=== PATIENT | male | born 1980 | race Two or more races ===

== ENCOUNTER 2016-10-06 00:40 | Emergency (ER) | payer OTHER ==
[~2016-10-06] VITALS: Ht 175.3 cm; Wt 111.1 kg
[2016-10-06 02:00] VITALS: BP 128/80
[2016-10-06] MEDS ORDERED: fentaNYL 100 mcg/2 mL IV ONE (02:00)
[2016-10-06 02:29] LABS: BASOPHILS % (AUTO) 1.4 % (0.0-2.0); EOSINOPHILS % (AUTO) 3.6 % (0.0-3.0); LYMPHOCYTES % (AUTO) 28.4 % (20.0-45.0); MEAN CORPUSCULAR HEMOGLOBIN 28.6 PG (27.0-31.0); MEAN CORPUSCULAR VOLUME 84 FL (80-99); MEAN PLATELET VOLUME 8.6 FL (6.5-10.1); MONOCYTES % (AUTO) 7.3 % (1.0-10.0); NEUTROPHILS % (AUTO) 59.3 % (45.0-75.0); PLATELET COUNT 171 K/UL (150-450); RED BLOOD COUNT 5.29 M/UL (4.70-6.10); RED CELL DISTRIBUTION WIDTH 11.8 % (11.6-14.8); WHITE BLOOD COUNT 4.6 K/UL (4.8-10.8)
[2016-10-06 02:42] LABS: ALANINE AMINOTRANSFERASE 46 U/L (3-41); ALBUMIN/GLOBULIN RATIO 1.3 (1.0-2.7); ANION GAP 16 (5-15); ASPARTATE AMINO TRANSFERASE 32 U/L (5-40); CALCIUM 8.9 mg/dL (8.6-10.2); CARBON DIOXIDE 25 mEQ/L (20-30); CHLORIDE 98 mEQ/L (98-107); CREATININE 0.8 mg/dL (0.7-1.2); GLOMERULAR FILTRATION RATE > 60 mL/min (>60); HEMOLYSIS 7; LIPASE 49 U/L (< 60); POTASSIUM 3.4 mEQ/L (3.4-4.9); SODIUM 139 mEQ/L (135-145); TOTAL PROTEIN 7.4 g/dL (6.6-8.7)
[2016-10-06 02:50] LABS: INR 1.9 (0.9-1.1)
[2016-10-06 02:51] LABS: APPEARANCE,URINE CLEAR; KETONES,URINE NEGATIVE (NEGATIVE); LEUKOCYTE ESTERASE ,URINE NEGATIVE (NEGATIVE); NITRITE,URINE NEGATIVE (NEGATIVE); PH,URINE 6 (4.5-8.0); PROTEIN,URINE NEGATIVE (NEGATIVE); UROBILINOGEN,URINE NORMAL MG/DL (0.0-1.0)
[2016-10-06 03:49] LABS: ERYTHROCYTE SEDIMENTATION RATE 10 MM/HR (0-15)
[2016-10-06] MEDS ORDERED: Morphine Sulfate 4mg/ml Inj IVP ONE (05:00)
[2016-10-06 06:02] LABS: INR 1.7 (0.9-1.1); PROTHROMBIN TIME 18.3 SEC (9.30-11.50)
[2016-10-06] MEDS ORDERED: Phytonadione 10 mg/mL 1ml amp SUBQ ONE (06:45)
--- NOTE | 2016-10-06 07:20 | Emergency Room Report ---
History of Present Illness General Chief Complaint: Male Urogenital Problems Source: Patient Present Illness HPI Patient presents with blood in his urine and right-sided flank pain. This began 2 days ago. He denies any trauma. He's never had this problem before. The pain is 7/10 - pressure. It does not radiate to his groin. Denies any fevers or chills. There's been some nausea without any vomiting. He's had no change in his stools. He's not taking blood thinners at this time. The urine was initially dark and he was passing some small clot material. He increased his oral intake of fluids and the urine has cleared up. He denies fevers, chills, chest pain, cough, upper respiratory symptoms, rashes or extremity pain, other bleeding, diabetes appeared never had renal stones in the past. The patient does drink alcohol. He was diagnosed with lupus as a child. Is a family history of lupus. He's not been on any treatment for this since childhood. Allergies: Coded Allergies: No Known Allergies (Unverified , 10/06/16) Patient History Past Medical History: see triage record Social History: Reports: alcohol use Social History Narrative , works for [employer] (not Stef). Reviewed Nursing Documentation: PMH: Agreed, PSxH: Agreed Nursing Documentation-PMH Past Medical History: No Stated History Physical Exam Vital Signs Date Time Temp Pulse Resp B/P Pulse Ox O2 Delivery O2 Flow Rate FiO2 10/06/16 00:48 98.8 75 16 125/80 97 Room Air Medical Decision Making Diagnostic Impression: Primary Impression: Flank pain Additional Impressions: Hematuria Renal cyst Elevated INR ER Course Patient presents with flank pain and hematuria. Differential includes renal stone, pyelonephritis, renal tumor amongst others. In addition with history of lupus any to consider the possibility of nephritis. Evaluation will be with labs including coags and CT of the abdomen and pelvis. The patient will receive analgesia. In addition we will be giving hydration. Labs are significant for clear urine and normal electrolytes and renal function. H&H is stable. CT abdomen reveals renal cyst without any evidence of obstruction. Her INR is elevated which is unexpected. This lab is repeated. Repeat INR is also elevated. He is in mild elevated liver function tests. Vitamin K was administered. The patient is clinically improved. He and his were given copies of labs and also CT scan report. Advised followup with his physician this week. Patient stable for outpatient observation and treatment. Laboratory Tests Test 10/06/16 02:00 10/06/16 02:25 10/06/16 05:45 White Blood Count 4.6 K/UL (4.8-10.8) L Red Blood Count 5.29 M/UL (4.70-6.10) Hemoglobin 15.1 G/DL (14.2-18.0) Hematocrit 44.5 % (42.0-52.0) Mean Corpuscular Volume 84 FL (80-99) Mean Corpuscular Hemoglobin 28.6 PG (27.0-31.0) Mean Corpuscular Hemoglobin Concent 34.0 G/DL (32.0-36.0) Red Cell Distribution Width 11.8 % (11.6-14.8) Platelet Count 171 K/UL (150-450) Mean Platelet Volume 8.6 FL (6.5-10.1) Neutrophils (%) (Auto) 59.3 % (45.0-75.0) Lymphocytes (%) (Auto) 28.4 % (20.0-45.0) Monocytes (%) (Auto) 7.3 % (1.0-10.0) Eosinophils (%) (Auto) 3.6 % (0.0-3.0) H Basophils (%) (Auto) 1.4 % (0.0-2.0) Erythrocyte Sedimentation Rate 10 MM/HR (0-15) Prothrombin Time 20.0 SEC (9.30-11.50) H 18.3 SEC (9.30-11.50) H Prothrombin Time INR 1.9 (0.9-1.1) H 1.7 (0.9-1.1) H PTT 145 SEC (23-33) H Sodium Level 139 mEQ/L (135-145) Potassium Level 3.4 mEQ/L (3.4-4.9) Chloride Level 98 mEQ/L (98-107) Carbon Dioxide Level 25 mEQ/L (20-30) Anion Gap 16 (5-15) H Blood Urea Nitrogen 12 mg/dL (7-23) Creatinine 0.8 mg/dL (0.7-1.2) Estimate Glomerular Filtration Rate > 60 mL/min (>60) Glucose Level 131 mg/dL (74-106) H Calcium Level 8.9 mg/dL (8.6-10.2) Total Bilirubin 0.4 mg/dL (0.0-1.2) Aspartate Amino Transferase (AST) 32 U/L (5-40) Alanine Aminotransferase (ALT) 46 U/L (3-41) H Alkaline Phosphatase 56 U/L (40-129) Total Protein 7.4 g/dL (6.6-8.7) Albumin 4.2 g/dL (3.5-5.2) Globulin 3.2 g/dL Albumin/Globulin Ratio 1.3 (1.0-2.7) Lipase 49 U/L (< 60) Urine Color Yellow Urine Appearance Clear Urine pH 6 (4.5-8.0) Urine Specific Morrison 1.010 (1.005-1.035) Urine Protein Negative (NEGATIVE) Urine Glucose (UA) Negative (NEGATIVE) Urine Ketones Negative (NEGATIVE) Urine Occult Blood Negative (NEGATIVE) Urine Nitrite Negative (NEGATIVE) Urine Bilirubin Negative (NEGATIVE) Urine Urobilinogen Normal MG/DL (0.0-1.0) Urine Leukocyte Esterase Negative (NEGATIVE) CT/MRI/US Diagnostic Results CT/MRI/US Diagnostic Results : Imaging Test Ordered: abd pelvis Impression IMPRESSION: No evidence of acute abdominopelvic disease, with limitation as described. Subtle but potentially significant abnormalities of the gastrointestinal tract may be missed. Repeat CT scan with full oral and IV contrast preparation recommended for more complete evaluation, as clinically indicated Hepatic steatosis Limited evaluation of gallbladder due to contraction Right renal cortical cyst Right lung base opacities, nonspecific, may be infectious/inflammatory, embolic , or neoplastic in nature. Further evaluation warranted. Dedicated contrast-enhanced CT scan of the thorax recommended for further evaluation. Last Vital Signs Date Time Temp Pulse Resp B/P Pulse Ox O2 Delivery O2 Flow Rate FiO2 10/06/16 07:33 98.8 75 16 125/78 99 Room Air Status: improved Disposition: HOME, SELF-CARE Condition: Improved Scripts Tramadol Hcl* (ULTRAM*) 50 Mg Tablet 50 MG ORAL Q6H Y for For Pain, #10 TAB 0 Refills Prov: Stef Cramer M.D. 10/06/16 Referrals: [facility],REFERRING (PCP) Stef Cramer M.D. Oct 06, 2016 07:20
[2016-10-06 07:21] VITALS: BP 125/78
[2016-10-06] MEDS ORDERED: TRAMADOL HCL50 MG ORAL (07:28)
[2016-10-06 07:33] VITALS: BP 125/78
--- NOTE | 2016-10-06 08:34 | Diagnostic Imaging Report ---
Indications: ./Flank pain Technique: Continuous helical CT imaging of the abdomen and pelvis was performed with automatic exposure control following administration of nonionic IV contrast only, on a Siemens sensation [address] scanner. Axial, coronal, sagittal images were reconstructed at 5 mm slice thickness. No oral contrast was administered per requesting physician's order, despite no contraindications listed in either submitted clinical data or tech note.. CTDI volume(s): 19 mGy Total DLP: 1070 mGy-cm Findings: Comparison: None Lack of oral contrast limits evaluation of gastrointestinal tract, nondilated throughout. Appendix unremarkable. No obvious mural thickening, adjacent stranding, extraluminal gas or fluid collections identified. Liver parenchyma diffusely decreased attenuation. Gallbladder contracted, limiting evaluation. 1 cm circumscribed low-attenuation focus lower pole cortex right kidney. Left kidney unremarkable. Bilateral renal collecting systems and ureters normal caliber. No intraparenchymal or intraluminal stones, perinephric or periureteral stranding. Urinary bladder partially distended without obvious abnormality. Pancreas, spleen, adrenal glands, prostate, seminal vesicles, vascular structures, retroperitoneum, mesentery, remainder visualized abdominopelvic anatomy unremarkable. Multiple small groundglass nodular opacities with irregular margins are scattered throughout the right lung base, some of which demonstrate lucent centers. Irregular pleural-based linear densities in both lung bases. Disc space narrowing with marginal osteophyte formation lower thoracic spine.. IMPRESSION: No evidence of acute abdominopelvic disease, with limitation as described. Subtle but potentially significant abnormalities of the gastrointestinal tract may be missed. Repeat CT scan with full oral and IV contrast preparation recommended for more complete evaluation, as clinically indicated Hepatic steatosis Limited evaluation of gallbladder due to contraction Right renal cortical cyst Right lung base opacities, nonspecific, may be infectious/inflammatory, embolic, or neoplastic in nature. Further evaluation warranted. Dedicated contrast-enhanced CT scan of the thorax recommended for further evaluation. This correlates with [facility] preliminary report.
== END 2016-10-06 07:35 | disposition home or self-care (01) ==
LOC: EMR 01:43
DX: R10.9 Unspecified abdominal pain (principal); R31.9 Hematuria, unspecified; N28.1 Cyst of kidney, acquired; R79.1 Abnormal coagulation profile; R11.0 Nausea; R79.89 Other specified abnormal findings of blood chemistry; K76.0 Fatty (change of) liver, not elsewhere classified
CPT/HCPCS: 36415; 74177; 80053; 81003; 83690; 85025; 85610; 85651; 85730; 96360; 96374; 96375; 99284; J2270; J2405; J3010; J3430; Q9967

== ENCOUNTER 2017-06-24 10:26 | Emergency (ER) | payer OTHER ==
[~2017-06-24] VITALS: Ht 175.3 cm; Wt 108.9 kg
[~2017-06-24 10:26] MED LIST: TRAMADOL HCL50 MG ORAL
[2017-06-24] MEDS ORDERED: NKM (10:34)
[2017-06-24 10:40] VITALS: BP 144/91
[2017-06-24] MEDS ORDERED: Ketorolac 60mg Inj IM ONE (10:45)
[2017-06-24] MEDS ORDERED: Norco 5mg/325mg tab ORAL ONE (10:45)
[2017-06-24] MEDS ORDERED: IBUPROFEN800 MG ORAL (10:45)
[2017-06-24] MEDS ORDERED: ROBAXIN-750750 MG PO (10:45)
[2017-06-24 10:54] VITALS: BP 144/91
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
[2017-06-25] MEDS ORDERED: LIDODERM700 M1 TOPIC (12:29)
[2017-06-25] MEDS ORDERED: TYLENOL EXTRA500 MG ORAL (12:29)
[2017-06-25] MEDS ORDERED: ROBAXIN500 MG PO (12:29)
== END 2017-06-24 10:55 | disposition home or self-care (01) ==
LOC: EMR 10:50
DX: M54.5 Low back pain (principal); M62.830 Muscle spasm of back; V43.52XA Car driver injured in collision with other type car in traffic accident, initial encounter; Y92.410 Unspecified street and highway as the place of occurrence of the external cause
CPT/HCPCS: 96372; 99284

== ENCOUNTER 2017-06-25 10:40 | Emergency (ER) | payer OTHER ==
[~2017-06-25] VITALS: Ht 175.3 cm; Wt 108.9 kg
[~2017-06-25 10:40] MED LIST changes: +IBUPROFEN800 MG ORAL; +NKM; +ROBAXIN-750750 MG PO
[2017-06-25] MEDS ORDERED: Ketorolac 60mg Inj IM ONE (11:30)
[2017-06-25] MEDS ORDERED: Cyclobenzaprine 10mg Tab ORAL ONE (11:30)
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
[2017-06-25] MEDS ORDERED: LIDODERM700 M1 TOPIC (12:29)
[2017-06-25] MEDS ORDERED: TYLENOL EXTRA500 MG ORAL (12:29)
[2017-06-25] MEDS ORDERED: ROBAXIN500 MG PO (12:29)
[2017-06-25 12:43] VITALS: BP 152/91
== END 2017-06-25 12:43 | disposition home or self-care (01) ==
LOC: EMR 11:25
DX: M54.5 Low back pain (principal); T14.8XXA Other injury of unspecified body region, initial encounter; V43.52XA Car driver injured in collision with other type car in traffic accident, initial encounter; Y92.410 Unspecified street and highway as the place of occurrence of the external cause
CPT/HCPCS: 96372; 99284

== ENCOUNTER 2017-07-31 09:56 | Emergency (ER) | payer OTHER ==
[~2017-07-31] VITALS: Ht 175.3 cm; Wt 108.9 kg
[~2017-07-31 09:56] MED LIST changes: +LIDODERM700 M1 TOPIC; +ROBAXIN500 MG PO; +TYLENOL EXTRA500 MG ORAL
[2017-07-31 10:10] VITALS: BP 127/70
[2017-07-31] MEDS ORDERED: Bactrim-DS 1 tab ORAL ONE (10:30)
[2017-07-31] MEDS ORDERED: Bacitracin Oint UD TOPIC ONE (10:30)
[2017-07-31] MEDS ORDERED: Tetanus/Diptheria/Pertussis Vaccine 0.5ml Syr IM ONE (10:30)
--- NOTE | 2017-07-31 10:37 | Emergency Room Report ---
History of Present Illness General Chief Complaint: Skin Rash/Abscess Source: Patient Present Illness HPI [place] Bitten by something R ankle. Initially itch, then redness and some tenderness. No calf tenderness. Localized swelling lateral ankle. Denies diabetes. Pain rated 8/10, aching an burning, not radiating. No numbness. Unknown last tetanus. No dyspnea, chest pain, cough URI, abdominal pain, dysuria. Allergies: Coded Allergies: No Known Allergies (Unverified , 10/06/16) Patient History Past Medical History: see triage record Social History: Denies: smoking Social History Narrative from home Reviewed Nursing Documentation: PMH: Agreed; PSxH: Agreed Review of Systems Eye: Denies: acuity changes All Other Systems: negative except mentioned in HPI Physical Exam Vital Signs Date Time Temp Pulse Resp B/P (MAP) Pulse Ox O2 Delivery O2 Flow Rate FiO2 07/31/17 10:05 97.7 78 19 127/70 96 Room Air 97.7 Sp02 EP Interpretation: reviewed, normal General Appearance: well appearing, no apparent distress Head: normocephalic, atraumatic Eyes: bilateral eye normal inspection, bilateral eye PERRL ENT: hearing grossly normal, normal voice, moist mucus membranes Neck: full range of motion, supple Respiratory: no respiratory distress, speaking full sentences Cardiovascular #1: regular rate, rhythm, no edema Cardiovascular #2: 2+ dorsalis pedis (R) Gastrointestinal: normal inspection Musculoskeletal: digits/nails normal, gait/station normal, normal range of motion, no calf tenderness, swelling - R lateral ankle, no fluctuance Neurologic: alert, oriented x3, grossly normal Psychiatric: mood/affect normal Skin: other - erythema and swelling R lateral ankle Medical Decision Making Diagnostic Impression: Primary Impression: Cellulitis Qualified Codes: L03.115 - Cellulitis of right lower limb Additional Impression: Bug bite with infection Qualified Codes: W57.XXXA - Bitten or stung by nonvenomous insect and other nonvenomous arthropods, initial encounter ER Course Patient with erythema and swelling R lateral ankle. DDX: cellulitis, abscess, gout, bite reaction. Exam most c/w cellulitis. Antibiotics indicated as well as tetanus, analgesics. No co-morbidities and no other labs indicated at this time. Patient stable for outpatient observation and treatment. Last Vital Signs Date Time Temp Pulse Resp B/P (MAP) Pulse Ox O2 Delivery O2 Flow Rate FiO2 07/31/17 13:18 78 20 152/82 98 Room Air 07/31/17 10:10 97.7 97.7 Status: improved Disposition: HOME, SELF-CARE Condition: Improved Scripts Ibuprofen* (MOTRIN*) 600 Mg Tablet 600 MG ORAL Q6H PRN for For Pain, #20 TAB Prov: Stef Cramer M.D. 07/31/17 Bacitracin (Bacitracin) 28.4 Gm Oint...g. 1 APPLIC TOPIC BID, #20 GM Prov: Stef Cramer M.D. 07/31/17 Trimethoprim/Sulfamethoxazole 160/800* (BACTRIM DS TABLET*) 1 Each Tablet 1 TAB ORAL Q12H, #14 TAB 0 Refills Prov: Stef Cramer M.D. 07/31/17 Referrals: [facility],REFERRING (PCP) Stef Cramer M.D. Jul 31, 2017 10:37
[2017-07-31] MEDS ORDERED: BACTRIM DS TAB1 EAC1 ORAL (10:43)
[2017-07-31] MEDS ORDERED: IBUPROFEN600 MG ORAL (10:43)
[2017-07-31] MEDS ORDERED: BACITRACIN15 GM TOPIC (10:43)
[2017-07-31 13:18] VITALS: BP 152/82
[2017-07-31] MEDS ORDERED: PREDNISONE20 MG ORAL (23:13)
== END 2017-07-31 13:22 | disposition home or self-care (01) ==
LOC: EMR 10:35
DX: L03.115 Cellulitis of right lower limb (principal); W57.XXXA Bitten or stung by nonvenomous insect and other nonvenomous arthropods, initial encounter; Y92.9 Unspecified place or not applicable; Z23 Encounter for immunization
CPT/HCPCS: 90471; 90715; 99283

== ENCOUNTER 2017-07-31 22:44 | Emergency (ER) | payer OTHER ==
[~2017-07-31] VITALS: Ht 175.3 cm; Wt 113.4 kg
[~2017-07-31 22:44] MED LIST changes: +BACITRACIN15 GM TOPIC; +BACTRIM DS TAB1 EAC1 ORAL; +IBUPROFEN600 MG ORAL
[2017-07-31 23:00] VITALS: BP 146/81
[2017-07-31] MEDS ORDERED: DiphenhydrAMINE 50mg/ml Inj IVP ONE (23:00)
[2017-07-31] MEDS ORDERED: Solu-MEDROL 125mg Inj IVP ONE (23:00)
[2017-07-31] MEDS ORDERED: PREDNISONE20 MG ORAL (23:13)
--- NOTE | 2017-07-31 23:13 | Emergency Room Report ---
History of Present Illness General Chief Complaint: Allergic Reaction Source: Patient Present Illness HPI Is a 36-year-old male with a history of allergic reaction ibuprofen the past. Couple years ago he took ibuprofen a broken a rash that resolved after Benadryl. He forgot about this and was prescribe ibuprofen and Bactrim earlier today for cellulitis of the lower leg. He broke out with a rash to his upper body after taking ibuprofen. He took 2 Benadryl prior to arrival. Said the skin is itching but no respiratory or complaint. No shortness of breath. No wheezing. Never had Bactrim before. Allergies: Coded Allergies: IBUPROFEN (Verified Allergy, Unknown, 07/31/17) Patient History Past Medical History: see triage record, old chart reviewed Past Surgical History: none Pertinent Family History: none Social History: Denies: smoking Immunizations: UTD Reviewed Nursing Documentation: PMH: Agreed; PSxH: Agreed Review of Systems Eye: Denies: eye pain, blurred vision ENT: Denies: ear pain, nose congestion, throat swelling Respiratory: Denies: cough, shortness of breath Cardiovascular: Denies: chest pain, palpitations Gastrointestinal: Denies: abdominal pain, diarrhea, nausea, vomiting Musculoskeletal: Denies: back pain, joint pain Skin: Reports: rash Neurological: Denies: headache, numbness Endocrine: Denies: increased thirst, increased urine Hematologic/Lymphatic: Denies: easy bruising All Other Systems: negative except mentioned in HPI Physical Exam Vital Signs Date Time Temp Pulse Resp B/P (MAP) Pulse Ox O2 Delivery O2 Flow Rate FiO2 07/31/17 22:52 98.5 86 18 146/81 95 Room Air 98.4 vitals normal Sp02 EP Interpretation: reviewed, normal General Appearance: well appearing, no apparent distress, alert Head: normocephalic, atraumatic Eyes: bilateral eye PERRL, bilateral eye EOMI ENT: hearing grossly normal, normal pharynx Neck: full range of motion, supple, no meningismus Respiratory: chest non-tender, lungs clear, normal breath sounds Cardiovascular #1: regular rate, rhythm, no murmur Gastrointestinal: normal bowel sounds, non tender, no mass, no organomegaly, no bruit, non-distended Musculoskeletal: back normal, gait/station normal, normal range of motion Neurologic: alert, oriented x3 Psychiatric: mood/affect normal Skin: warm/dry, rash - urticaria mostly on upper torso and shoulders Medical Decision Making Diagnostic Impression: Primary Impression: Allergic reaction Qualified Codes: T78.40XA - Allergy, unspecified, initial encounter ER Course Patient with allergic reaction to ibuprofen since he had a before. We'll stop the ibuprofen. Patient placed on Benadryl and redness on. He felt better. No evidence of anaphylaxis. We'll discharge home. Last Vital Signs Date Time Temp Pulse Resp B/P (MAP) Pulse Ox O2 Delivery O2 Flow Rate FiO2 07/31/17 22:52 98.5 86 18 146/81 95 Room Air 98.4 Status: improved Disposition: HOME, SELF-CARE Condition: Stable Scripts Prednisone* (PREDNISONE*) 20 Mg Tablet 60 MG ORAL DAILY, #15 TAB Prov: SAUNDRA GONZALEZ M.D. 07/31/17 Referrals: [facility],REFERRING (PCP) Patient Instructions: Drug Allergy Additional Instructions: Stop ibuprofen. Continue with the antibiotics. Stop it if you break out in a rash. Return if symptom worsen. Follow-up your doctor in 7 days. SAUNDRA GONZALEZ M.D. Jul 31, 2017 23:13
[2017-07-31 23:42] VITALS: BP 116/60
[2017-07-31 23:44] VITALS: BP 116/60
== END 2017-07-31 23:45 | disposition home or self-care (01) ==
LOC: EMR 22:50
DX: L50.0 Allergic urticaria (principal); T39.315A Adverse effect of propionic acid derivatives, initial encounter; Y92.9 Unspecified place or not applicable
CPT/HCPCS: 96374; 96375; 99284; J1200; J2930

== ENCOUNTER 2017-09-12 20:57 | Emergency (ER) | payer OTHER ==
[~2017-09-12] VITALS: Ht 175.3 cm; Wt 104.3 kg
[~2017-09-12 20:57] MED LIST changes: +PREDNISONE20 MG ORAL
[2017-09-12] MEDS ORDERED: NKM (21:04)
[2017-09-12 21:05] VITALS: BP 126/75
[2017-09-12] MEDS ORDERED: VALACYCLOVIR500 MG ORAL (21:19)
[2017-09-12] MEDS ORDERED: PREDNISONE20 MG ORAL (21:19)
--- NOTE | 2017-09-12 21:20 | Emergency Room Report ---
History of Present Illness General Chief Complaint: Headache Source: Patient Present Illness HPI This is a 36-year-old male with a history lupus but not on medication. He presents with chief complaint of right-sided headache this morning. Woke up with it. Now with right facial drooping. He was concerned he may have a stroke. Pain is throbbing in nature. 7 out of 10. No cough congestion. No fever chills. Denies any other complaint. No slurred speech or focal deficit besides the face. Allergies: Coded Allergies: IBUPROFEN (Verified Allergy, Unknown, 07/31/17) Patient History Past Medical History: see triage record, old chart reviewed Past Surgical History: other Pertinent Family History: none Social History: Denies: smoking Immunizations: other Reviewed Nursing Documentation: PMH: Agreed; PSxH: Agreed Review of Systems Eye: Denies: eye pain, blurred vision ENT: Denies: ear pain, nose congestion, throat swelling Respiratory: Denies: cough, shortness of breath Cardiovascular: Denies: chest pain, palpitations Gastrointestinal: Denies: abdominal pain, diarrhea, nausea, vomiting Musculoskeletal: Denies: back pain, joint pain Skin: Denies: rash Neurological: Reports: headache; Denies: numbness Endocrine: Denies: increased thirst, increased urine Hematologic/Lymphatic: Denies: easy bruising All Other Systems: negative except mentioned in HPI Physical Exam Vital Signs Date Time Temp Pulse Resp B/P (MAP) Pulse Ox O2 Delivery O2 Flow Rate FiO2 09/12/17 21:01 98.2 73 16 126/75 96 Room Air 98.2 vitals normal Sp02 EP Interpretation: reviewed, normal General Appearance: well appearing, no apparent distress, alert Head: normocephalic, atraumatic Eyes: bilateral eye PERRL, bilateral eye EOMI ENT: hearing grossly normal, normal pharynx Neck: full range of motion, supple, no meningismus Respiratory: chest non-tender, lungs clear, normal breath sounds Cardiovascular #1: regular rate, rhythm, no murmur Gastrointestinal: normal bowel sounds, non tender, no mass, no organomegaly, no bruit, non-distended Musculoskeletal: back normal, gait/station normal, normal range of motion Neurologic: alert, oriented x3, other - Right facial droop including the forehead. Psychiatric: mood/affect normal Skin: warm/dry Medical Decision Making Diagnostic Impression: Primary Impression: Merritt's palsy ER Course Patient presents with Merritt's palsy. No evidence of CVA or TIA. No evidence of bleed or meningitis. We'll discharge home. CT/MRI/US Diagnostic Results CT/MRI/US Diagnostic Results : Imaging Test Ordered: CT head Impression read by radiologist. Negative Last Vital Signs Date Time Temp Pulse Resp B/P (MAP) Pulse Ox O2 Delivery O2 Flow Rate FiO2 09/12/17 21:01 98.2 73 16 126/75 96 Room Air 98.2 Status: unchanged Disposition: HOME, SELF-CARE Condition: Stable Scripts Prednisone* (PREDNISONE*) 20 Mg Tablet 60 MG ORAL DAILY for 6 Days, TAB Prov: SAUNDRA GONZALEZ M.D. 09/12/17 Valacyclovir Hcl* (VALTREX*) 500 Mg Tablet 1000 MG ORAL TID for 7 Days, TAB Prov: SAUNDRA GONZALEZ M.D. 09/12/17 Additional Instructions: Tape eyelid down at night to prevent foreign body in dryness. Wear an eye patch. Follow-up with your DrElder in 7 days for recheck and also referral to see a specialist for your lupus. Return if symptom worsen. SAUNDRA GONZALEZ M.D. Sep 12, 2017 21:20
[2017-09-12 21:34] VITALS: BP 126/75
--- NOTE | 2017-09-12 21:50 | Diagnostic Imaging Report ---
EXAM: CT Head Without Intravenous Contrast CLINICAL HISTORY: Altered mental status TECHNIQUE: Axial computed tomography images of the head/brain without intravenous contrast. CTDI is 0.15, 70.38 mGy and DLP is 1431 mGy-cm. One or more of the following dose reduction techniques were used: automated exposure control, adjustment of the mA and/or kV according to patient size, use of iterative reconstruction technique. COMPARISON: No relevant prior studies available. FINDINGS: Brain: Unremarkable. No acute hemorrhage. Normal fernandez-white differentiation. No significant mass effect. Ventricles: Unremarkable. No ventriculomegaly. Bones/joints: Unremarkable. No acute fracture. Soft tissues: Unremarkable. Sinuses: Unremarkable as visualized. No acute sinusitis. Mastoid air cells: Unremarkable. IMPRESSION: No acute intracranial abnormality.
== END 2017-09-12 21:45 | disposition home or self-care (01) ==
LOC: EMR 21:35
DX: G51.0 Bell's palsy (principal); Z88.6 Allergy status to analgesic agent; R41.82 Altered mental status, unspecified
CPT/HCPCS: 70450; 99284; J7512

== ENCOUNTER 2017-09-14 10:55 | Emergency (ER) | payer OTHER ==
[~2017-09-14] VITALS: Ht 177.8 cm; Wt 90.7 kg
[~2017-09-14 10:55] MED LIST changes: +VALACYCLOVIR500 MG ORAL
[2017-09-14 11:03] VITALS: BP 138/81
--- NOTE | 2017-09-14 11:21 | Emergency Room Report ---
History of Present Illness General Chief Complaint: Headache Source: Patient, EMS Present Illness HPI Patient is a 36-year-old male who presented after increased right-sided facial pain. Patient been noted to have onset of symptoms 2 days ago. Patient reports having recently been seen and diagnosed with Franz's palsy. Patient had reportedly began his steroids. Patient reports having numbness to the tongue as well as abnormal taste. Patient reports having difficulty with the fluid leaking out the right side of his mouth. Allergies: Coded Allergies: IBUPROFEN (Verified Allergy, Unknown, 07/31/17) Patient History Reviewed Nursing Documentation: PMH: Agreed; PSxH: Agreed Nursing Documentation-PM Past Medical History: No History, Except For Hx Asthma: No - FRANZ'S PALSY Review of Systems All Other Systems: negative except mentioned in HPI Physical Exam Vital Signs Date Time Temp Pulse Resp B/P (MAP) Pulse Ox O2 Delivery O2 Flow Rate FiO2 09/14/17 10:52 98.8 68 20 140/82 98 Room Air 98.8 Sp02 EP Interpretation: reviewed, normal General Appearance: normal inspection, well appearing, no apparent distress, alert, GCS 15, Chronically Ill Head: atraumatic ENT: normal ENT inspection, hearing grossly normal, normal voice Neck: normal inspection, full range of motion, supple, no bony tend Respiratory: normal inspection, lungs clear, normal breath sounds, no respiratory distress, no retraction, no wheezing Cardiovascular #1: regular rate, rhythm, no edema Gastrointestinal: normal inspection, normal bowel sounds, non tender, soft, no guarding, no hernia Genitourinary: no CVA tenderness Musculoskeletal: normal inspection, back normal, normal range of motion Neurologic: normal inspection, alert, responsive, motor strength/tone normal, DTRs symmetric, cerebellar normal, normal gait, speech normal, other - right facial droop with forehead involvement Psychiatric: normal inspection, judgement/insight normal, mood/affect normal Skin: normal inspection, normal color, no rash Medical Decision Making Diagnostic Impression: Primary Impression: Franz's palsy ER Course Patient presented for headache. Differential diagnoses included but was not limited to skull fracture, subarachnoid hemorrhage, meningitis, aneurysm, mass lesion, intracranial hemorrhage.Because of complexity of patient's case laboratory testing and imaging studies were ordered. The patient was recently seen and diagnosed with Franz's palsy. The patient was given Compazine for his headache.The patient was advised to follow-up with his primary care physician as previous directed.The patient is advised to follow up with primary care doctor in 1-2 days. Patient is advised to return if any worsening condition or if any changes in status that are concerning. This report is dictated with [employer] inspector publications software which may occasionally lead to discrepancies related to use of this software. Labs Test 09/14/17 11:35 White Blood Count 8.9 K/UL (4.8-10.8) Red Blood Count 5.32 M/UL (4.70-6.10) Hemoglobin 14.8 G/DL (14.2-18.0) Hematocrit 44.4 % (42.0-52.0) Mean Corpuscular Volume 83 FL (80-99) Mean Corpuscular Hemoglobin 27.9 PG (27.0-31.0) Mean Corpuscular Hemoglobin Concent 33.4 G/DL (32.0-36.0) Red Cell Distribution Width 12.1 % (11.6-14.8) Platelet Count 167 K/UL (150-450) Mean Platelet Volume 7.7 FL (6.5-10.1) Neutrophils (%) (Auto) 81.7 % (45.0-75.0) Lymphocytes (%) (Auto) 9.6 % (20.0-45.0) Monocytes (%) (Auto) 7.4 % (1.0-10.0) Eosinophils (%) (Auto) 0.6 % (0.0-3.0) Basophils (%) (Auto) 0.6 % (0.0-2.0) Erythrocyte Sedimentation Rate 7 MM/HR (0-15) Prothrombin Time 16.9 SEC (9.30-11.50) Prothromb Time International Ratio 1.6 (0.9-1.1) Activated Partial Thromboplast Time 110 SEC (23-33) Sodium Level 141 MMOL/L (136-145) Potassium Level 3.6 MMOL/L (3.5-5.1) Chloride Level 107 MMOL/L (98-107) Carbon Dioxide Level 26 MMOL/L (21-32) Anion Gap 8 mmol/L (5-15) Blood Urea Nitrogen 16 mg/dL (7-18) Creatinine 0.9 MG/DL (0.55-1.30) Estimat Glomerular Filtration Rate > 60 mL/min (>60) Glucose Level 103 MG/DL (74-106) Calcium Level 8.3 MG/DL (8.5-10.1) Total Bilirubin 0.4 MG/DL (0.2-1.0) Aspartate Amino Transf (AST/SGOT) 33 U/L (15-37) Alanine Aminotransferase (ALT/SGPT) 77 U/L (12-78) Alkaline Phosphatase 50 U/L (46-116) Total Protein 7.1 G/DL (6.4-8.2) Albumin 3.4 G/DL (3.4-5.0) Globulin 3.7 g/dL Albumin/Globulin Ratio 0.9 (1.0-2.7) Last Vital Signs Date Time Temp Pulse Resp B/P (MAP) Pulse Ox O2 Delivery O2 Flow Rate FiO2 09/14/17 11:03 98.8 69 20 138/81 98 Room Air 98.8 Status: improved Disposition: HOME, SELF-CARE Condition: Stable Scripts Acetaminophen* (ACETAMINOPHEN EXTRA STRENGTH*) 500 Mg Tablet 500 MG ORAL Q8H PRN for Fever/Headache/Mild Pain, #30 TAB Prov: Gentry Rodrigues MD 09/14/17 Gentry Rodrigues MD Sep 14, 2017 11:21
[2017-09-14 11:58] LABS: BASOPHILS % (AUTO) 0.6 % (0.0-2.0); EOSINOPHILS % (AUTO) 0.6 % (0.0-3.0); HEMATOCRIT 44.4 % (42.0-52.0); HEMOGLOBIN 14.8 G/DL (14.2-18.0); LYMPHOCYTES % (AUTO) 9.6 % (20.0-45.0); MEAN CORPUSCULAR VOLUME 83 FL (80-99); MONOCYTES % (AUTO) 7.4 % (1.0-10.0); NEUTROPHILS % (AUTO) 81.7 % (45.0-75.0); PLATELET COUNT 167 K/UL (150-450); RED BLOOD COUNT 5.32 M/UL (4.70-6.10); RED CELL DISTRIBUTION WIDTH 12.1 % (11.6-14.8); WHITE BLOOD COUNT 8.9 K/UL (4.8-10.8)
[2017-09-14 12:10] LABS: ANION GAP 8 mmol/L (5-15); BLOOD UREA NITROGEN 16 mg/dL (7-18); CALCIUM 8.3 MG/DL (8.5-10.1); CARBON DIOXIDE 26 MMOL/L (21-32); CHLORIDE 107 MMOL/L (98-107); CREATININE 0.9 MG/DL (0.55-1.30); POTASSIUM 3.6 MMOL/L (3.5-5.1); SODIUM 141 MMOL/L (136-145)
[2017-09-14 12:15] LABS: ALANINE AMINOTRANSFERASE 77 U/L (12-78); ALBUMIN 3.4 G/DL (3.4-5.0); ALBUMIN/GLOBULIN RATIO 0.9 (1.0-2.7); ALKALINE PHOSPHATASE 50 U/L (46-116); ASPARTATE AMINO TRANSFERASE 33 U/L (15-37); BILIRUBIN,TOTAL 0.4 MG/DL (0.2-1.0)
[2017-09-14 12:17] LABS: INR 1.6 (0.9-1.1)
[2017-09-14] MEDS ORDERED: ACETAMINOPHEN500 M3 ORAL (13:15)
[2017-09-14 13:53] VITALS: BP 138/81
== END 2017-09-14 13:30 | disposition home or self-care (01) ==
LOC: EDBD 10:55 → EMR 11:19
DX: G51.0 Bell's palsy (principal); Z88.6 Allergy status to analgesic agent
CPT/HCPCS: 36415; 80053; 85025; 85610; 85651; 85730; 96360; 96374; 96375; 99283; J0780

== ENCOUNTER 2019-11-24 11:09 | Emergency (ER) | payer OTHER ==
[~2019-11-24] VITALS: Ht 175.3 cm; Wt 117.9 kg
[~2019-11-24 11:09] MED LIST changes: +ACETAMINOPHEN500 M3 ORAL
[2019-11-24 11:22] VITALS: BP 128/76
--- NOTE | 2019-11-24 11:22 | NUR ---
ED Nurse Note: Pt walked in to ED from home c/o right ankle pain and swelling x4 days. Denies redness on the area. Denies trauma/ injury. Pt has hx of lupus. Pt unable to bear weight on the affected area. AAOx4, verbally responsive. No SOB, on room air.
--- NOTE | 2019-11-24 11:42 | Emergency Room Report ---
History of Present Illness General Chief Complaint: Pain Source: Patient Present Illness HPI Patient presents with right ankle pain. He is 3 days that it is worsening. He also has swelling. Is worse when he weight bears. He has a history of lupus and is not taking any medication for this. He is allergic to Tylenol and ibuprofen and has not taken anything for pain. He denies any chest pain or shortness of breath. He also history of a DVT. He recently returned to construction 2 weeks ago. He does not know if he is injured the ankle but does not believe so. He has been more active and had put on weight. He rates the pain 8/10. Aching and somewhat sharp. He denies any calf pain. There is no chest pain, hemoptysis or shortness of breath. His girlfriend works at a doctor 's office but they were unable to see him. No fevers, chills, sore throat, palpitations, nausea, vomiting, diarrhea, dysuria, abdominal pain, rashes, depression, anxiety, visual changes, dizziness , headache. Allergies: Coded Allergies: ACETAMINOPHEN (Verified Allergy, Unknown, 11/24/19) IBUPROFEN (Verified Allergy, Unknown, 07/31/17) COVID-19 Screening Contact w/high risk pt: No Experienced COVID-19 symptoms?: No COVID-19 Testing performed POLICE LIAISON OFFICER: No Patient History Past Medical History: see triage record, other Social History: Reports: smoking, alcohol use Social History Narrative Recently returned to work with construction Reviewed Nursing Documentation: PMH: Agreed; PSxH: Agreed Nursing Documentation-PMH Past Medical History: No History, Except For Hx Asthma: No - FRANZ'S PALSY Review of Systems All Other Systems: negative except mentioned in HPI Physical Exam Vital Signs Date Time Temp Pulse Resp B/P (MAP) Pulse Ox O2 Delivery O2 Flow Rate FiO2 11/24/19 11:15 97.9 85 20 128/76 (93) 96 Room Air Sp02 EP Interpretation: reviewed, normal General Appearance: well appearing, no apparent distress, GCS 15 Head: normocephalic Eyes: bilateral eye normal inspection, bilateral eye PERRL, bilateral eye EOMI ENT: moist mucus membranes Neck: supple Respiratory: lungs clear, normal breath sounds Cardiovascular #1: regular rate, rhythm Cardiovascular #2: 2+ radial (R), 2+ dorsalis pedis (R) Gastrointestinal: normal inspection, normal bowel sounds, non tender, no mass, non-distended Musculoskeletal: back normal, normal range of motion, tender, swelling - Right ankle Neurologic: alert, oriented x3, grossly normal Psychiatric: mood/affect normal Skin: no rash, warm/dry Medical Decision Making Diagnostic Impression: Primary Impression: Right ankle pain Qualified Codes: M25.571 - Pain in right ankle and joints of right foot Additional Impression: SLE (systemic lupus erythematosus) Qualified Codes: M32.9 - Systemic lupus erythematosus, unspecified ER Course Patient presents with right ankle pain and swelling. He has a history of lupus and DVT. Differential includes gout, pseudogout, cellulitis, lupus exacerbation , DVT amongst others. Evaluation with x-ray, labs and noninvasive vascular study. Because of the patient's allergies he will be treated with tramadol here. Will not expect that if this is related to lupus that there would be multiple joints affected. Complex patient. X-ray normal. DVT excluded with vascular study. White count normal. Uric acid normal. ESR minimally elevated. Patient pain improved with treatment. Discussed findings with patient. Discussed treatment plan. Discussed the need for follow-up. Patient stable for outpatient observation and treatment. Laboratory Tests Test 11/24/19 11:40 White Blood Count 5.3 K/UL (4.8-10.8) Red Blood Count 5.62 M/UL (4.70-6.10) Hemoglobin 15.5 G/DL (14.2-18.0) Hematocrit 47.8 % (42.0-52.0) Mean Corpuscular Volume 85 FL (80-99) Mean Corpuscular Hemoglobin 27.6 PG (27.0-31.0) Mean Corpuscular Hemoglobin Concent 32.5 G/DL (32.0-36.0) Red Cell Distribution Width 12.3 % (11.6-14.8) Platelet Count 196 K/UL (150-450) Mean Platelet Volume 7.9 FL (6.5-10.1) Neutrophils (%) (Auto) 76.0 % (45.0-75.0) H Lymphocytes (%) (Auto) 13.2 % (20.0-45.0) L Monocytes (%) (Auto) 7.2 % (1.0-10.0) Eosinophils (%) (Auto) 2.8 % (0.0-3.0) Basophils (%) (Auto) 0.8 % (0.0-2.0) Erythrocyte Sedimentation Rate 16 MM/HR (0-15) H Sodium Level 139 MMOL/L (136-145) Potassium Level 4.4 MMOL/L (3.5-5.1) Chloride Level 103 MMOL/L (98-107) Carbon Dioxide Level 31 MMOL/L (21-32) Anion Gap 5 mmol/L (5-15) Blood Urea Nitrogen 15 mg/dL (7-18) Creatinine 1.1 MG/DL (0.55-1.30) Estimated Glomerular Filtration Rate > 60 mL/min (>60) Glucose Level 130 MG/DL (74-106) H Uric Acid 7.1 MG/DL (2.6-7.2) Calcium Level 9.0 MG/DL (8.5-10.1) Total Bilirubin 0.5 MG/DL (0.2-1.0) Aspartate Amino Transferase (AST) 35 U/L (15-37) Alanine Aminotransferase (ALT) 51 U/L (12-78) Alkaline Phosphatase 66 U/L (46-116) Total Protein 7.7 G/DL (6.4-8.2) Albumin 3.6 G/DL (3.4-5.0) Globulin 4.1 g/dL Albumin/Globulin Ratio 0.9 (1.0-2.7) L Other X-Ray Diagnostic Results Other X-Ray Diagnostic Results : X-Ray ordered: Right ankle # of Views/Limited Vs Complete: 4 View Indication: Other EP Interpretation: Yes Interpretation: no dislocation, no soft tissue swelling, no fractures Impression: No acute disease Electronically Signed by: Electronically signed by Stef Cramer MD CT/MRI/US Diagnostic Results CT/MRI/US Diagnostic Results : Imaging Test Ordered: Venous duplex right Impression No DVT Last Vital Signs Date Time Temp Pulse Resp B/P (MAP) Pulse Ox O2 Delivery O2 Flow Rate FiO2 11/24/19 14:35 97.9 80 17 125/76 96 Room Air Status: improved Disposition: HOME, SELF-CARE Condition: Improved Scripts Tramadol Hcl* (ULTRAM*) 50 Mg Tablet 50 MG ORAL Q6H PRN for For Pain, #8 TAB 0 Refills Prov: Stef Cramer MD 11/24/19 Prednisone* (PREDNISONE*) 20 Mg Tablet 20 MG ORAL DAILY, #5 TAB Prov: Stef Cramer MD 11/24/19 Stef Cramer MD Nov 24, 2019 11:42
--- NOTE | 2019-11-24 11:44 | NUR ---
ED Nurse Note: IV line established. Blood specimen collected, sent to lab.
[2019-11-24] MEDS ORDERED: traMADol 50mg tab ORAL ONE (11:45)
[2019-11-24 12:05] LABS: ANION GAP 5 mmol/L (5-15); BLOOD UREA NITROGEN 15 mg/dL (7-18); CARBON DIOXIDE 31 MMOL/L (21-32); CHLORIDE 103 MMOL/L (98-107); CREATININE 1.1 MG/DL (0.55-1.30); HEMATOCRIT 47.8 % (42.0-52.0); HEMOGLOBIN 15.5 G/DL (14.2-18.0); LYMPHOCYTES % (AUTO) 13.2 % (20.0-45.0); MEAN CORPUSCULAR VOLUME 85 FL (80-99); MONOCYTES % (AUTO) 7.2 % (1.0-10.0); PLATELET COUNT 196 K/UL (150-450); POTASSIUM 4.4 MMOL/L (3.5-5.1); RED BLOOD COUNT 5.62 M/UL (4.70-6.10); RED CELL DISTRIBUTION WIDTH 12.3 % (11.6-14.8); SODIUM 139 MMOL/L (136-145); WHITE BLOOD COUNT 5.3 K/UL (4.8-10.8)
[2019-11-24 12:06] LABS: BASOPHILS % (AUTO) 0.8 % (0.0-2.0); EOSINOPHILS % (AUTO) 2.8 % (0.0-3.0)
[2019-11-24 12:10] LABS: ALANINE AMINOTRANSFERASE 51 U/L (12-78); ALBUMIN 3.6 G/DL (3.4-5.0); ALBUMIN/GLOBULIN RATIO 0.9 (1.0-2.7); ALKALINE PHOSPHATASE 66 U/L (46-116); ASPARTATE AMINO TRANSFERASE 35 U/L (15-37); BILIRUBIN,TOTAL 0.5 MG/DL (0.2-1.0)
[2019-11-24] MEDS ORDERED: TRAMADOL HCL50 MG ORAL (14:18)
[2019-11-24] MEDS ORDERED: PREDNISONE20 MG ORAL (14:18)
[2019-11-24 14:30] VITALS: BP 125/76
[2019-11-24 14:35] VITALS: BP 125/76
--- NOTE | 2019-11-24 14:35 | NUR ---
ER DISCHARGE NOTE:cheryl provided Patient is cleared to be discharged per ERMD, pt is aox4, on room air, with stable vital signs. pt was given dc and prescription instructions, pt was able to verbalize understanding, pt id band and iv site removed without complications. pt is able to ambulate with steady gait. pt took all belongings.
--- NOTE | 2019-11-24 16:05 | Diagnostic Imaging Report ---
Indication: Right ankle pain Technique: 3 views of the right ankle Comparison: none Findings: No acute fractures. No dislocations. The joint spaces are preserved. Impression: Negative
--- NOTE | 2019-11-24 16:15 | Diagnostic Imaging Report ---
Indication: Right leg pain Technique: Grayscale and duplex images of the right lower extremity veins Comparison: None Findings: On the right, grayscale and duplex images demonstrate no evidence of intraluminal thrombus. Normal phasic Doppler waveforms, demonstrating normal augmentation response and no evidence of valvular insufficiency. Greater saphenous vein(s) and tibial veins are patent. Normal compressibility. Impression: Negative for evidence of lower extremity deep venous thrombosis bilaterally
== END 2019-11-24 14:57 | disposition home or self-care (01) ==
LOC: EMR 12:28
DX: M25.571 Pain in right ankle and joints of right foot (principal); M32.9 Systemic lupus erythematosus, unspecified; Z86.718 Personal history of other venous thrombosis and embolism; Z88.6 Allergy status to analgesic agent; G51.0 Bell's palsy
CPT/HCPCS: 36415; 73610; 80053; 84550; 85025; 85651; 93971; J7512; Z7502; 99284

== ENCOUNTER 2020-04-03 10:33 | Emergency (ER) | payer OTHER ==
[~2020-04-03] VITALS: Ht 175.3 cm; Wt 113.4 kg
[2020-04-03 10:49] VITALS: BP 126/78
--- NOTE | 2020-04-03 10:50 | NUR ---
ED Nurse Note: Pt walked in to ED c/o bump with abcess on right buttocks x4 days. Pt reports lightheadedness from the pain. Noted with brownish dark red abcess with foul odor. AAox4, no SOB. Afebrile.
[2020-04-03] MEDS ORDERED: Tetanus-Diphtheria Toxoid IM ONE (11:30)
[2020-04-03] MEDS ORDERED: Lidocaine 1% Plain 30 ml INJ ONE (11:30)
[2020-04-03] MEDS ORDERED: Tetanus/Diptheria/Pertussis IM ONE ×2 (11:30)
[2020-04-03] MEDS ORDERED: Morphine Sulfate 2mg/ml Inj(IV/IM USE ONLY) IM ONE (11:30)
[2020-04-03] MEDS ORDERED: Morphine Sulfate 4mg/ml Inj (IV USE ONLY) IVP ONE ×2 (12:00→14:15)
[2020-04-03] MEDS ORDERED: Omnipaque-300 100ml vial INJ PRN (12:00)
[2020-04-03] MEDS ORDERED: Clindamycin 150mg cap ORAL SCH (12:00)
--- NOTE | 2020-04-03 12:05 | NUR ---
ED Nurse Note: IV line established. Blood sent to lab.
[2020-04-03 12:39] LABS: BASOPHILS % (AUTO) 1.6 % (0.0-2.0); EOSINOPHILS % (AUTO) 1.6 % (0.0-3.0); HEMATOCRIT 44.8 % (42.0-52.0); HEMOGLOBIN 15.2 G/DL (14.2-18.0); LYMPHOCYTES % (AUTO) 9.5 % (20.0-45.0); MEAN CORPUSCULAR VOLUME 84 FL (80-99); MONOCYTES % (AUTO) 7.8 % (1.0-10.0); NEUTROPHILS % (AUTO) 79.5 % (45.0-75.0); PLATELET COUNT 175 K/UL (150-450); RED BLOOD COUNT 5.35 M/UL (4.70-6.10); RED CELL DISTRIBUTION WIDTH 12.6 % (11.6-14.8); WHITE BLOOD COUNT 7.8 K/UL (4.8-10.8)
[2020-04-03 12:48] LABS: ANION GAP 8 mmol/L (5-15); BLOOD UREA NITROGEN 12 mg/dL (7-18); CALCIUM 8.2 MG/DL (8.5-10.1); CARBON DIOXIDE 26 MMOL/L (21-32); CHLORIDE 102 MMOL/L (98-107); CREATININE 0.8 MG/DL (0.55-1.30); POTASSIUM 3.9 MMOL/L (3.5-5.1); SODIUM 136 MMOL/L (136-145)
[2020-04-03 12:52] LABS: ALANINE AMINOTRANSFERASE 53 U/L (12-78); ALBUMIN 3.4 G/DL (3.4-5.0); ALBUMIN/GLOBULIN RATIO 0.9 (1.0-2.7); ALKALINE PHOSPHATASE 71 U/L (46-116); ASPARTATE AMINO TRANSFERASE 30 U/L (15-37); BILIRUBIN,TOTAL 0.7 MG/DL (0.2-1.0)
--- NOTE | 2020-04-03 13:11 | NUR ---
ED Nurse Note: Pt returned from CT, not in any distress.
--- NOTE | 2020-04-03 14:55 | Diagnostic Imaging Report ---
Clinical Indication: Right buttock abscess for 4 days, pain Technique: No oral contrast utilized, per emergency room physician request IV administration nonionic contrast. Venous phase spiral acquisition obtained through the abdomen and pelvis. Multiplanar reconstructions were generated. Total dose length product 834 and 540 mGycm. CTDIvol(s) 14 and 13 mGy. Dose reduction achieved using automated exposure control Comparison: 10/06/2016 Findings: In the perineal region, well below the level of the anus on the right side of the anterior-inferior intergluteal fold involving and just deep to the skin surface, there is a 5.6 x 2.3 x 5.3 cm area of mostly high attenuation, with some slightly lower attenuation centrally. However, the appearance of the center of this does not appear to be that of a discrete fluid collection. There is also some infiltration of the subcutaneous fat extending posteriorly and laterally from this area. Lack of enteric contrast limits assessment of the GI tract. The appendix is normal. There is no evidence of diverticulosis or diverticulitis. The distal esophagus, stomach, duodenum are unremarkable. No small bowel distention. No free or loculated intraperitoneal gas or fluid is evident. The attenuation of the liver is 30 Hounsfield units below that of the spleen, indicating diffuse fatty change. No focal abnormality. The gallbladder, bile ducts, pancreas are unremarkable. Spleen is enlarged, long axis dimension 15.6 cm. The adrenals are unremarkable. Bilateral renal cysts are again demonstrated, as well as subcentimeter low-attenuation lesions which are too small to characterize. Prominent but not frankly enlarged retroperitoneal and iliac chain nodes are noted. No pelvic mass or adenopathy. The included lung bases demonstrate areas of groundglass opacity as well as denser consolidation bilaterally. Similar although much less extensive findings were evident on the prior exam, only on the right. The bones are unremarkable except for mild degenerative changes of the lower thoracic spine Impression: Right-sided inferior buttock region lesion, as described, appearance suggestive of inflammation with phlegmon but discrete central fluid to suggest abscess is not clearly demonstrated. There is some central slightly lower attenuation which could represent a small amount of fluid, however. Bilateral lower lobe pulmonary parenchymal infiltrates, suspicious for bilateral multifocal pneumonia. Note unilateral similar but much less extensive findings on the prior study; correlation with clinical history is recommended Splenomegaly Fatty liver Findings discussed by phone with Dr. Bruno in the emergency room at the time of interpretation The CT scanner at [facility] is accredited by the [employer] and the scans are performed using protocols designed to limit radiation exposure to as low as reasonably achievable to attain images of sufficient resolution adequate for diagnostic evaluation.
[2020-04-03] MEDS ORDERED: ZITHROMAX250 MG ORAL (15:09)
[2020-04-03] MEDS ORDERED: CLINDAMYCIN HC300 MG ORAL (15:09)
[2020-04-03] MEDS ORDERED: TRAMADOL HCL200 M1 ORAL (15:09)
--- NOTE | 2020-04-03 15:10 | Emergency Room Report ---
History of Present Illness General Chief Complaint: Skin Rash/Abscess Source: Patient Present Illness HPI 39-year-old male with past medical history of lupus presents to emergency department with acute on chronic right buttock pain x2 days, however worse over the last 4 days. Patient states that he could have had a spider bite or an ingrown hair 2 months ago. He did not seek medical care at that time, and the bump that was there "went away". Patient has noted over the past 4 days the bump has recurred and swollen in size. He feels pressure when he defecates, however otherwise denies constipation, melena, hematochezia, diarrhea, nausea, vomiting, chest pain, cough, fever or any other symptoms. He states when the pain gets that he feels like he is going to "pass out" The patient's symptoms were gradual onset, severity was moderate, duration since 4 days. Quality: Aching/pressure Past medical history: Autoimmune lupus Past surgical history: Denies Smoking: Denies Alcohol use: Denies Drug use: Chronic marijuana use Review of systems: CONST: No fevers or chills, No night sweats PULMONARY: No productive cough, No shortness of breath CARDIAC: No chest pain, No palpitations GI: No vomiting, No diarrhea , No melena_or_BRBPR : No dysuria, No hematuria, No discharge NEURO: No new_focal_weakness_or_numbness, No confusion, No vision changes 14 point Review of Systems is otherwise negative except per HPI Physical Exam: GENERAL: Awake_alert_ nontoxic, no acute distress Spo2 98% on RA -normal EYES: Extraocular muscles are intact. Conjunctivae clear. Lids without swelling ENT: External nose and ear normal_in_appearance. Oropharynx clear. Head_atraumat ic, Moist_oral_mucosa NECK: No JVD. No meningismus. No thyromegaly. Supple. Trachea midline RESP: Normal respiratory effort. Symmetric rise. No stridor. Clear_to_auscultation_No_rales_No_wheezes CARDIAC: Regular rate and regular rhytm. No_significant pedal edema. ABDOMEN: Soft. Nondistended. Nontender_No_rebound_or_guarding. : penis without rash, testicles descended without tenderness or swelling, testicles with normal lie. Chaperoned with nurse Sauer at bedside Rectal: Right gluteal cleft fluctuance. Pain elicited with digital rectal examination. Serosanguineous fluid expressing. No crepitus. No Shirley's gangrene. Normal tone and sensation, light brown stool, no melena or blood. Chaperoned with nurse at bedside MSK: Normal muscle tone, without rigidity. Extremities without asymmetric deformity or swelling. SKIN: Warm and dry. No visible cyanosis or pallor NEUROLOGIC: Alert, oriented x3 . Motor_and_sensation_grossly_intact. No truncal ataxia. Gait_normal Psych: Normal mood and affect, normal judgment and insight - COORDINATION OF CARE Case was discussed with: Patient , Patient's Physician--radiology Any labs and imaging that were ordered were interpreted as part of the medical decision making: Medical Decision Making/Plan: Differential diagnosis includes perianal vs perirectal abscess, cholecystitis, choledocholithiasis, hepatitis, small bowel obstruction, volvulus, AAA, pancreatitis, atypical appendicitis, gastroparesis, gastritis, peptic ulcer disease, among others. Patient is well appearing with stable vital signs. Abdomen is non peritoneal without guarding or rebound. Examination of the perineum demonstrates a fluctuant lesion to the right inferior buttock near the rectal vault. CT scan was ordered to evaluate for perianal versus perirectal abscess. CT scan demonstrates phlegmon/nonspecific fluid collection without discrete abscess at the right inferior buttock. Patient was given local anesthesia and narcotics for pain control. Needle aspiration of the fluid collection was performed with retrieval of 25 cc of dark red no arterial blood. Patient had immediate relief after needle aspiration. No incision and drainage was performed. Labs were ordered and the results were reassuring. Incidentally, CT scan also identified atypical lesions within the lungs which are suspect for Covid pneumonia versus lupus inflammatory changes. Patient was informed of these findings and educated to self quarantine from others until he can get a Covid swab. Patient plans to get tested from the [facility]. I advised patient to follow-up with his primary care doctor for referral to his autoimmune specialist to manage his lupus. Will DC with antibiotics. Recommend wound check in 2 to 3 days. The patient was nontoxic with benign vital signs. They did not meet admission criteria and was stable for outpatient therapy, under the current guideline. The patient was instructed to be home quarantined, and appropriate precautions were given. The patient was educated and instructed to notify a healthcare professional if they develop difficulty breathing, chest pain, palpitations, fever or other concerning symptoms. These instructions were given to the patient in both verbal and written forms. The patient was given an opportunity to ask questions. The patient was discharged with written instructions for COVID-19, including strict ED return precautions. 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 Needle aspiration performed with 18-gauge needle. Retrieved 25 cc of dark nonpulsatile nonarterial blood. Immediate relief of pain and swelling Packing: None Complications: Patient tolerated procedure well without complication Neurovascularly intact post procedure Medical Decision Making Diagnostic Impression: Primary Impression: Phlegmon Additional Impressions: Suspected COVID-19 virus infection SLE (systemic lupus erythematosus) CT/MRI/US Diagnostic Results CT/MRI/US Diagnostic Results : Impression CT Abdomen Pelvis w/Contrast Clinical Indication: Right buttock abscess for 4 days, pain Findings: In the perineal region, well below the level of the anus on the right side of the anterior-inferior intergluteal fold involving and just deep to the skin surface, there is a 5.6 x 2.3 x 5.3 cm area of mostly high attenuation, with some slightly lower attenuation centrally. However, the appearance of the center of this does not appear to be that of a discrete fluid collection. There is also some infiltration of the subcutaneous fat extending posteriorly and laterally from this area. Lack of enteric contrast limits assessment of the GI tract. The appendix is normal. There is no evidence of diverticulosis or diverticulitis. The distal esophagus, stomach, duodenum are unremarkable. No small bowel distention. No free or l oculated intraperitoneal gas or fluid is evident. The attenuation of the liver is 30 Hounsfield units below that of the spleen, indicating diffuse fatty change. No focal abnormality. The gallbladder, bile ducts, pancreas are unremarkable. Spleen is enlarged, long axis dimension 15.6 cm. The adrenals are unremarkable. Bilateral renal cysts are again demonstrated, as well as subcentimeter low-attenuation lesions which are too small to characterize. Prominent but not frankly enlarged retroperitoneal and iliac chain nodes are noted. No pelvic mass or adenopathy. The included lung bases demonstrate areas of groundglass opacity as well as denser consolidation bilaterally. Similar although much less extensive findings were evident on the prior exam, only on the right. The bones are unremarkable except for mild degenerative changes of the lower thoracic spine Impression: Right-sided inferior buttock region lesion, as described, appearance suggestive of inflammation with phlegmon but discrete central fluid to suggest abscess is not clearly demonstrated. There is some central slightly lower attenuation which could represent a small amount of fluid, however. Bilateral lower lobe pulmonary parenchymal infiltrates, suspicious for bilateral multifocal pneumonia. Note unilateral similar but much less extensive findings on the prior study; correlation with clinical history is recommended Splenomegaly Fatty liver Findings discussed by phone with Dr. Bruno in the emergency room at the time of interpretation Reevaluation Time: 15:07 Last Vital Signs Date Time Temp Pulse Resp B/P (MAP) Pulse Ox O2 Delivery O2 Flow Rate FiO2 04/03/20 12:10 98.1 04/03/20 10:49 88 18 126/78 92 Room Air Status: improved Disposition: HOME, SELF-CARE Admit Decision Time: 15:07 Condition: Stable Scripts Clindamycin Hcl (CLINDAMYCIN HCL) 300 Mg Capsule 300 MG ORAL THREE TIMES A DAY, #21 CAP Prov: Hiral Bruno D.O. 04/03/20 Azithromycin* (ZITHROMAX*) 250 Mg Tablet 250 MG ORAL DAILY, #6 TAB 0 Refills Take two tables once daily for 1 day, then one tablet once daily for 4 days. Prov: Hiral Bruno D.O. 04/03/20 Tramadol Hcl (TRAMADOL HCL) 200 Mg Tab.er.24h 200 MG ORAL DAILY for 7 Days, #14 TAB Prov: Hiral Bruno D.O. 04/03/20 Referrals: [facility],REFERRING (PCP) Patient Instructions: Pelvic Mass, Systemic Lupus Erythematosus, Adult Additional Instructions: Instructions for patient/municipal firefighter: Follow up with your physician in 1-2 days for wound check. You need to be started on lupus meds again. Follow-up with your doctor sooner if your condition requires a more timely clinical reevaluation. Return to the emergency department immediately if you feel that your condition is worsening or if you have any new or concerning symptoms. Review your discharge instructions and take any prescriptions given as instructed. [facility] PROVIDES FREE OR LOW-COST HEALTH SERVICES TO PEOPLE WHO CAN SHOW PROOF THAT THEY LIVE IN [facility]. TO FIND MORE CLINICS PARTNERED WITH [facility] TO PROVIDE SERVICE, PLEASE CALL . Your evaluation suggests that you are suffering from a viral infection producing a viral syndrome. You can sign up for testing with [facility] at the following website as discussed [email or web address] Symptoms of a viral syndrome may include fever, sore throat, headache, body aches and pains, generalized weakness and fatigue, and runny nose. You do not show signs or symptoms suggestive of a serious or life threatening illness. This illness may be caused by a number of different viruses, including Influenza A or B or COVID-19. These viruses are highly contagious and spread rapidly from person to person via coughing and sneezing of the virus or by contaminated surface contact with nasal or other respiratory secretions. These viruses cause a similar combination of signs and symptoms which are typically much more severe than the common cold. Typically they begin with the rapid onset of fever, often high (over 102), body aches, fatigue, headache, and usually upper respiratory tract infections symptoms such as cough, runny nose, and sore throat. The illness typically lasts 7-10 days, with the fever and feelings of weakness and body aches usually lasting 3-5 days. Your own immune system fights off these infections. Only rarely do secondary bacterial infections occur (such as bacterial pneumonia) and can be serious. At this time your symptoms do not appear serious, however, there are limitations to online visits and if you are not improving you may need to be evaluated by a doctor in person and that doctor may need to do additional tests. INSTRUCTIONS: Illnesses such as yours typically resolve on their own with time however you must remember to stay hydrated and drink 2-3 times your normal fluid intake, as fever and your increased metabolism in fighting the infection uses more water. Fever control is important to help you feel better and to help prevent dehydration. Acetaminophen is an excellent choice for fever control and other symptoms (as long as you are not allergic to the medication). Rest is also important in helping your body fight this infection. Over the counter cough and decongestant medications are safe (as long as you dont have uncontrolled high blood pressure) and may help the cough and congestion slightly. As these viruses are highly contagious, good hand washing habits, and covering your cough and sneeze help prevent spread. Fever can be a sign of a serious infection and it is imperative that you go directly to an Emergency Department for serious symptoms such as weakness, confusion, significant shortness of breath, abdominal pain, or severe headache. Close follow up with a physician is important if you are not improving over the next few days or you experience worsening of your symptoms. Although it is impossible to know at this point if you have COVID-19 (the [place] virus), please quarantine yourself and anyone else that is residing with you for the longer of the following time periods: 14 days OR 3 days after the last of your symptoms has resolved CONTACT THE DOCTOR RIGHT AWAY if you develop worsening symptoms such as shortness of breath, chest pain, neck stiffness, confusion or any other new, worsening, or concerning symptoms. For emergencies contact 911 immediately. Hiral Bruno D.O. Apr 03, 2020 15:09
[2020-04-03 15:17] VITALS: BP 120/78
--- NOTE | 2020-04-03 15:17 | NUR ---
ED Nurse Note: Pt cleared by ERMD for discharge. DC instructions/prescription was given and explained to pt and verbalized understanding of teachings. All medical deviecs such as ID band and IV line removed. Pt is AAO x4, ambulatory and left with all personal belongings.
== END 2020-04-03 15:17 | disposition home or self-care (01) ==
LOC: EMR 13:10
DX: L02.31 Cutaneous abscess of buttock (principal); M32.9 Systemic lupus erythematosus, unspecified; Z88.6 Allergy status to analgesic agent; G51.0 Bell's palsy; K76.0 Fatty (change of) liver, not elsewhere classified; R16.1 Splenomegaly, not elsewhere classified; N28.1 Cyst of kidney, acquired; Z23 Encounter for immunization
CPT/HCPCS: 10060; 36415; 74177; 80053; 85025; 90471; 90715; 96372; 96374; 96375; 96376; J2270; J2405; Q9965; Z7502; 90714; 99284